=== PATIENT | female | born 1960 | race Caucasian/White ===

== ENCOUNTER 2017-08-27 06:34 | Outpatient (CLI) | payer BC, MEDICARE ==
[2017-08-27] MEDS ORDERED: LIDOCAINE 2% 20 ML VIAL. (06:54)
[2017-08-27] MEDS ORDERED: IODIXANOL 320 MG/ML 100 ML VIAL. (06:54)
[2017-08-27 07:33] LABS: HEMOGLOBIN 13.4 g/dL (12.0-15.5); MEAN CORPUSCULAR HEMOGLOBIN 31 pg (25-35); MEAN CORPUSCULAR HGB CONC 34 g/dL (31-37); MEAN CORPUSCULAR VOLUME 91 fL (79-100); PLATELET COUNT 354 x10^3/uL (140-400); RED BLOOD COUNT 4.31 x10^6/uL (3.50-5.40); RED CELL DISTRIBUTION WIDTH 14.1 % (11.5-14.5); WHITE BLOOD COUNT 5.6 x10^3/uL (4.0-11.0)
[2017-08-27 07:37] LABS: ANION GAP 8 (6-14); BLOOD UREA NITROGEN 15 mg/dL (7-20); CALCIUM 9.1 mg/dL (8.5-10.1); CARBON DIOXIDE 24 mmol/L (21-32); CHLORIDE 107 mmol/L (98-107); CREATININE 1.1 mg/dL (0.6-1.0); GFR 50.8; GLUCOSE 168 mg/dL (70-99); SODIUM 139 mmol/L (136-145)
[2017-08-27] MEDS ORDERED: NITROGLYCERIN 200 MCG/2 ML SYRINGE FOR CATH/VASC LAB. (07:45)
[2017-08-27] MEDS ORDERED: HEPARIN for IV BOLUS 10,000 UNIT/10 ML VIAL. (07:45)
[2017-08-27] MEDS ORDERED: VERAPAMIL 5 MG/2 ML VIAL. (07:45)
[2017-08-27 07:52] LABS: PROTHROMBIN TIME PATIENT 12.8 SEC (11.7-14.0)
[2017-08-27] MEDS ORDERED: CONTRAST GIVEN. MC (08:00)
[2017-08-27] MEDS: NITROGLYCERIN 200 MCG/2 ML SYRINGE FOR CATH/VASC LAB. IART (08:35)
[2017-08-27] MEDS: VERAPAMIL 5 MG/2 ML VIAL. IART (08:35)
[2017-08-27] MEDS: IODIXANOL 320 MG/ML 100 ML VIAL. IART (08:36)
[2017-08-27] MEDS: LIDOCAINE 2% 20 ML VIAL. IJ (08:37)
[2017-08-27] MEDS: fentaNYL PF VIAL 100 MCG/2 ML VIAL IV (08:38)
[2017-08-27] MEDS: MIDAZOLAM HCL/PF 2 MG/2 ML VIAL. IV (08:38)
[2017-08-27] MEDS: HEPARIN for IV BOLUS 10,000 UNIT/10 ML VIAL. IART (08:43)
[2017-08-27] MEDS ORDERED: IV 1/2 NORMAL SALINE 1,000 ML IV (08:46)
== END 2017-08-27 11:30 | disposition home or self-care (01) ==
LOC: CCL 06:34
DX: R94.39 Abnormal result of other cardiovascular function study (principal); I10 Essential (primary) hypertension; E11.9 Type 2 diabetes mellitus without complications; G47.30 Sleep apnea, unspecified; E03.9 Hypothyroidism, unspecified; E78.5 Hyperlipidemia, unspecified; K21.9 Gastro-esophageal reflux disease without esophagitis; F31.9 Bipolar disorder, unspecified; F41.9 Anxiety disorder, unspecified; K58.9 Irritable bowel syndrome, unspecified; Z90.710 Acquired absence of both cervix and uterus; Z90.49 Acquired absence of other specified parts of digestive tract; Z98.890 Other specified postprocedural states; Z79.82 Long term (current) use of aspirin; Z79.84 Long term (current) use of oral hypoglycemic drugs; Z79.899 Other long term (current) drug therapy; Z82.49 Family history of ischemic heart disease and other diseases of the circulatory system; Z88.1 Allergy status to other antibiotic agents; Z88.5 Allergy status to narcotic agent
CPT/HCPCS: 36415; 80048; 85027; 85610; 93458; 99152; 99153; C1769; C1892; J1644; J2001; J2250; J3010; J3490